=== PATIENT | female | born 1955 | race Caucasian/White ===

== ENCOUNTER 2018-12-07 12:48 | Emergency (ER) | payer OTHER ==
--- NOTE | 2018-12-07 13:22 | UC ---
Shortness of Breath HPI - HPI Summary HPI Summary: 63 y/o female with hx of COPD 3 days hx of cough , chest congestion and SOB c/o chest pressure , symptoms are severe 8 out of 10, worse with exertion , nothing makes it better, no fever, no chills on arrival her PO was 83% on room air 94 % on 2 L NC EKG : no ST elevation no neb tx / steroid was given at the urgent care - History of Current Complaint Chief Complaint: UCRespiratory Stated Complaint: ST,EARS/ST/SINUS COMPLAINT,LIGHTHEADED,DIZZY Time Seen by Provider: 12/07/18 13:04 Hx Obtained From: Patient, Family/Shipping Clerk/Admin Onset/Duration: Gradual Onset, Lasting Days - 3, Still Present Timing: Constant Current Severity: Severe Dyspnea At: Rest Aggravating Factors: Movement, Deep Breaths, Recumbent Position Alleviating Factors: Nothing Associated Signs & Symptoms: Positive: Cough (Productive), Chest Pain w/Cough, Chest Pain Unrelated to Cough, Edema. Negative: Fever, Chills, Diaphoresis, Nasal Congestion, Dizzy, Calf Pain/Swelling Related History: Obesity, Similar Episode - COPD / pneumonia - Allergy/Home Medications Allergies/Adverse Reactions: Allergies Allergy/AdvReac Type Severity Reaction Status Date / Time codeine Allergy Unknown Verified 12/07/18 12:58 Reaction Details peginterferon lynn-2b Allergy Unknown Verified 12/07/18 12:58 Reaction Details Home Medications: Home Medications Albuterol HFA INHALER* [Ventolin HFA Inhaler*] 1 - 2 puff INH Q4H PRN 12/07/18 [ History Confirmed 12/07/18] Diazepam TAB(*) [Valium TAB(*)] 5 mg PO TID PRN 12/07/18 [History Confirmed ] Mometasone/Formoter 200/5 MDI* [Dulera 200/5 MDI*] 2 puff INH BID 12/07/18 [ History Confirmed 12/07/18] PMH/Surg Hx/FS Hx/Imm Hx Respiratory History: COPD - Surgical History Surgical History: Unable to Obtain/Confirm - Family History Known Family History: Negative: Diabetes - Social History Alcohol Use: None Substance Use Type: None Smoking Status (MU): Heavy Every Day Tobacco Smoker Review of Systems All Other Systems Reviewed And Are Negative: Yes Constitutional: Positive: Negative Skin: Positive: Negative Eyes: Positive: Negative ENT: Positive: Negative Respiratory: Positive: Shortness Of Breath, Cough Cardiovascular: Positive: Chest Pain Is Patient Immunocompromised?: No Physical Exam Triage Information Reviewed: Yes Appearance: Ill-Appearing, Pain Distress - on respiratory distress Vital Signs: Initial Vital Signs Temp 97.6 F 12/07/18 12:52 Pulse 76 12/07/18 12:52 Resp 24 12/07/18 12:52 BP 164/96 12/07/18 12:52 Pulse Ox 94 12/07/18 12:52 Vital Signs Reviewed: Yes Eyes: Positive: Conjunctiva Clear ENT: Positive: Normal ENT inspection, Hearing grossly normal, Pharynx normal Neck: Positive: Supple, Nontender, No Lymphadenopathy Respiratory: Positive: Chest non-tender, Respiratory distress, Decreased breath sounds Cardiovascular: Positive: RRR Abdominal Exam: Normal Abdomen Description: Positive: Nontender, Soft Bowel Sounds: Positive: Present Diagnostics - EKG Cardiac Rate: NL Cardiac Rhythm: Sinus: Normal ST Segment: Normal Shortness of Breath Dx - Differential Dx/Diagnosis Provider Diagnosis: COPD exacerbation Discharge - Sign-Out/Discharge Documenting (check all that apply): Patient Departure All imaging exams completed and their final reports reviewed: No Studies - Discharge Plan Condition: Fair Disposition: TRANS HIGHER LVL OF CARE FAC Referrals: No Primary Care Phys,NOPCP [Primary Care Provider] - - Billing Disposition and Condition Condition: FAIR Disposition: Trans Higher Lvl of Care Fac
[2018-12-07 13:31] VITALS: BP 144/98
== END 2018-12-07 13:31 | disposition short-term general hospital (02) ==
LOC: UCCORT 12:48
DX: J44.1 Chronic obstructive pulmonary disease with (acute) exacerbation (principal); F17.210 Nicotine dependence, cigarettes, uncomplicated
CPT/HCPCS: 93005; 99213; G0463

== ENCOUNTER 2023-02-20 04:06 | Inpatient (IN) ==
[2023-02-20] MEDS ORDERED: Ondansetron 4 mg VIAL 2 MG/ML 2 ml VIAL IV ONE (04:35)
[2023-02-20] MEDS ORDERED: Ondansetron ODT 4 mg TAB 4 MG TAB SL ONE (05:02)
[2023-02-20] MEDS ORDERED: Ondansetron ODT 4 mg TAB 4 MG TAB ONE (05:03)
[2023-02-20 05:22] LABS: Hematocrit 35.6 % (35-45); Hemoglobin 11.9 g/dL (11.5-14.3); Mean Corpuscular Hemoglobin 25.6 pg (27-33); Mean Corpuscular Hgb Conc 33.5 g/dL (31-36); Mean Corpuscular Volume 76.5 fL (80-97); Mean Platelet Volume 6.6 fL (7.5-11.2); Platelet Count 472 10^3/uL (150-450); Red Blood Count 4.66 10^6/uL (3.63-4.92); Red Cell Distribution Width 17.7 % (12-17)
[2023-02-20 05:32] LABS: Albumin 3.9 g/dL (3.2-5.2); Albumin/Globulin Ratio 1.4 (1-3); Calcium 9.3 mg/dL (8.6-10.3); Creatinine, Serum 0.79 mg/dL (0.51-0.95); Globulin 2.7 g/dL (2-4); Total Bilirubin 0.5 mg/dL (0.2-1.0); Total Protein 6.6 g/dL (6.4-8.9); eGFR CKD-EPI 81.4 (>60)
[2023-02-20] MEDS ORDERED: Iohexol 300 (CONTRAST) 10 ML SDV IV ONE (05:47)
[2023-02-20 06:02] LABS: Microcytosis 1+
[2023-02-20 06:03] LABS: Anisocytosis 1+; Stomatocytes 1+
[2023-02-20 06:04] LABS: ABS Basophils 0.1 10^3/uL (0.0-0.1); ABS Lymphocytes 0.6 10^3/uL (1.0-4.8); ABS Monocytes 1.2 10^3/uL (0.0-0.9); ABS Neutrophils 13.2 10^3/uL (1.5-7.6); ABS Nucleated RBC 0.02 10^3/ul
[2023-02-20 06:05] LABS: Eosinophil % 0.1 %; Lymphocyte % 3.8 %; Nucleated Red Blood Cells % 0.1 /100 WBC (0.0-0.4)
[2023-02-20] MEDS: KCL 20 MEQ/100 ML IVPREMIX 20 MEQ/100 ML BAG IV SCH ×2 (07:22→09:58)
[2023-02-20] MEDS ORDERED: Al Hydrox/Mg Hydrox/Simet LIQ 30 ML UDC PO PRN (07:49)
[2023-02-20] MEDS ORDERED: Albuterol/Ipratropium NEB.SOL (2.5/0.5 MG) 3 ML NEB.SOLN INH PRN (08:10)
[2023-02-20 08:36] LABS: PCO2 Arterial 68 mmHg (35-45); PO2 Arterial 99 mmHg (80-100)
[2023-02-20] MEDS ORDERED: NS 0.9% 1000 ml BAG 1,000 ML IV SCH (09:00)
[2023-02-20 09:19] LABS: HDL Cholesterol 73.1 mg/dL
[2023-02-20 10:42] LABS: Urine Appearance Cloudy; Urine Bilirubin Negative (Negative); Urine Blood Negative (Negative); Urine Color Yellow; Urine Glucose Negative (Negative); Urine Ketones Negative (Negative); Urine Nitrite Negative (Negative); Urine Protein Negative (Negative); Urine Specific Gravity 1.034 (1.002-1.030); Urine Urobilinogen Negative (Negative)
[2023-02-20 11:01] LABS: Blood Urea Nitrogen 31 mg/dL (6-24); Calcium 9.3 mg/dL (8.6-10.3); Chloride 66 mmol/L (101-111); Creatinine, Serum 0.74 mg/dL (0.51-0.95); Glucose 163 mg/dL (70-100); Potassium 3.7 mmol/L (3.5-5.0); Sodium 121 mmol/L (135-145); eGFR CKD-EPI 88.1 (>60)
[2023-02-20] MEDS: Mometasone/Formoter 200/5 MDI INH SCH ×2 (11:08→21:56)
[2023-02-20 11:19] LABS: CO2 Carbon Dioxide > 45 mmol/L (22-32)
[2023-02-20 11:23] LABS: Urine Bacteria Absent (Absent); Urine Red Blood Cell Trace(0-2/hpf) (Absent); Urine White Blood Cell 2+(11-20/hpf) (Absent)
[2023-02-20 12:49] LABS: Osmolality Serum 266 mOsm/kg (275-295)
[2023-02-20 17:47] LABS: Blood Urea Nitrogen 28 mg/dL (6-24); Calcium 9.4 mg/dL (8.6-10.3); Chloride 69 mmol/L (101-111); Creatinine, Serum 0.69 mg/dL (0.51-0.95); Glucose 190 mg/dL (70-100); Potassium 3.8 mmol/L (3.5-5.0); Sodium 122 mmol/L (135-145); eGFR CKD-EPI 94.5 (>60)
[2023-02-20] MEDS: Ondansetron 4 mg VIAL 2 MG/ML 2 ml VIAL IV PRN (18:07)
[2023-02-20 18:23] LABS: CO2 Carbon Dioxide > 45 mmol/L (22-32)
[2023-02-20] MEDS: NS 0.9% 1000 ml BAG 1,000 ML IV SCH (21:55)
[2023-02-21] MEDS: NS 0.9% 1000 ml BAG 1,000 ML IV SCH ×3 (05:01→20:26)
[2023-02-21] MEDS: Mometasone/Formoter 200/5 MDI INH SCH ×3 (07:19→20:03)
[2023-02-21] MEDS ORDERED: Enoxaparin 40 MG/0.4 ML SYR SUBCUT SCH (08:00)
[2023-02-21 10:02] LABS: ABS Basophils 0.1 10^3/uL (0.0-0.1); ABS Lymphocytes 0.6 10^3/uL (1.0-4.8); ABS Monocytes 0.9 10^3/uL (0.0-0.9); ABS Neutrophils 8.3 10^3/uL (1.5-7.6); ABS Nucleated RBC 0.01 10^3/ul; Calcium 8.7 mg/dL (8.6-10.3); Creatinine, Serum 0.6 mg/dL (0.51-0.95); Eosinophil % 0.4 %; Hematocrit 32.7 % (35-45); Hemoglobin 10.9 g/dL (11.5-14.3); Lymphocyte % 6.1 %; Magnesium 1.8 mg/dL (1.9-2.7); Mean Corpuscular Hemoglobin 25.8 pg (27-33); Mean Corpuscular Hgb Conc 33.2 g/dL (31-36); Mean Corpuscular Volume 77.9 fL (80-97); Mean Platelet Volume 6.7 fL (7.5-11.2); Nucleated Red Blood Cells % 0.1 /100 WBC (0.0-0.4); Platelet Count 346 10^3/uL (150-450); Potassium 3.6 mmol/L (3.5-5.0); Red Cell Distribution Width 17.9 % (12-17); eGFR CKD-EPI 97.7 (>60)
[2023-02-21 13:53] LABS: Calcium 8.7 mg/dL (8.6-10.3); Creatinine, Serum 0.65 mg/dL (0.51-0.95); Potassium 3.6 mmol/L (3.5-5.0); eGFR CKD-EPI 95.8 (>60)
[2023-02-21] MEDS ORDERED: NS 0.9% 1000 ml BAG 1,000 ML IV SCH (14:30)
[2023-02-22] MEDS: Ondansetron 4 mg VIAL 2 MG/ML 2 ml VIAL IV PRN (00:29)
[2023-02-22] MEDS: NS 0.9% 1000 ml BAG 1,000 ML IV SCH ×3 (02:45→23:05)
[2023-02-22] MEDS: Albuterol/Ipratropium NEB.SOL (2.5/0.5 MG) 3 ML NEB.SOLN INH SCH ×2 (07:29→13:59)
[2023-02-22] MEDS: Mometasone/Formoter 200/5 MDI INH SCH ×2 (07:29→19:11)
[2023-02-22 12:24] LABS: Calcium 8.2 mg/dL (8.6-10.3); Creatinine, Serum 0.54 mg/dL (0.51-0.95); Potassium 3.7 mmol/L (3.5-5.0); eGFR CKD-EPI 100.2 (>60)
[2023-02-22] MEDS: Albuterol/Ipratropium NEB.SOL (2.5/0.5 MG) 3 ML NEB.SOLN INH PRN (19:11)
[2023-02-23] MEDS: NS 0.9% 1000 ml BAG 1,000 ML IV SCH (05:34)
[2023-02-23] MEDS: Mometasone/Formoter 200/5 MDI INH SCH ×2 (08:58→19:26)
[2023-02-23] MEDS ORDERED: Furosemide 40 mg/4 ml IV VIAL IV SLOW PU ONE (10:08)
[2023-02-23] MEDS: Albuterol/Ipratropium NEB.SOL (2.5/0.5 MG) 3 ML NEB.SOLN INH PRN (10:16)
[2023-02-23] MEDS: Albuterol/Ipratropium NEB.SOL (2.5/0.5 MG) 3 ML NEB.SOLN INH SCH ×2 (14:01→19:26)
[2023-02-23] MEDS: cefTRIAXone 1 gm/50 mL D5W 1 GM/50 ML BAG IV SCH (14:44)
[2023-02-24] MEDS: Albuterol/Ipratropium NEB.SOL (2.5/0.5 MG) 3 ML NEB.SOLN INH SCH ×3 (08:13→20:10)
[2023-02-24 08:22] LABS: Calcium 8.6 mg/dL (8.6-10.3); Creatinine, Serum 0.57 mg/dL (0.51-0.95); eGFR CKD-EPI 98.9 (>60)
[2023-02-24] MEDS: Mometasone/Formoter 200/5 MDI INH SCH ×2 (08:22→20:11)
[2023-02-24] MEDS: cefTRIAXone 1 gm/50 mL D5W 1 GM/50 ML BAG IV SCH (15:11)
[2023-02-24] MEDS ORDERED: Furosemide 40 mg/4 ml IV VIAL IV SLOW PU ONE (15:56)
[2023-02-24] MEDS: methylPREDNISolone SOD SUCC 40 mg/ml 1 ml VIAL IV SCH (16:19)
[2023-02-25] MEDS: methylPREDNISolone SOD SUCC 40 mg/ml 1 ml VIAL IV SCH ×2 (05:31→18:33)
[2023-02-25] MEDS: Albuterol/Ipratropium NEB.SOL (2.5/0.5 MG) 3 ML NEB.SOLN INH SCH ×3 (07:29→19:54)
[2023-02-25] MEDS: Mometasone/Formoter 200/5 MDI INH SCH ×2 (07:30→19:54)
[2023-02-25] MEDS: cefTRIAXone 1 gm/50 mL D5W 1 GM/50 ML BAG IV SCH (14:42)
[2023-02-26] MEDS: methylPREDNISolone SOD SUCC 40 mg/ml 1 ml VIAL IV SCH ×2 (06:29→17:47)
[2023-02-26 08:13] LABS: Hematocrit 33.4 % (35-45); Hemoglobin 11.1 g/dL (11.5-14.3); Mean Corpuscular Hemoglobin 25.9 pg (27-33); Mean Corpuscular Hgb Conc 33.2 g/dL (31-36); Mean Platelet Volume 6.7 fL (7.5-11.2); Platelet Count 338 10^3/uL (150-450); Red Blood Count 4.28 10^6/uL (3.63-4.92); Red Cell Distribution Width 17.6 % (12-17); White Blood Count 14.5 10^3/uL (3.8-11.8)
[2023-02-26] MEDS: Mometasone/Formoter 200/5 MDI INH SCH ×2 (08:22→19:28)
[2023-02-26] MEDS: Albuterol/Ipratropium NEB.SOL (2.5/0.5 MG) 3 ML NEB.SOLN INH SCH ×2 (08:23→13:47)
[2023-02-26 08:44] LABS: Creatinine, Serum 0.6 mg/dL (0.51-0.95); Potassium 4.5 mmol/L (3.5-5.0); eGFR CKD-EPI 97.7 (>60)
[2023-02-26] MEDS ORDERED: Albuterol HFA INHALER 8 gm MDI INH PRN (13:29)
[2023-02-26] MEDS: Albuterol HFA INHALER 8 gm MDI INH SCH (19:29)
[2023-02-26] MEDS: Albuterol/Ipratropium NEB.SOL (2.5/0.5 MG) 3 ML NEB.SOLN INH PRN (21:27)
[2023-02-27] MEDS: methylPREDNISolone SOD SUCC 40 mg/ml 1 ml VIAL IV SCH (06:39)
[2023-02-27] MEDS: Mometasone/Formoter 200/5 MDI INH SCH ×2 (07:41→19:25)
[2023-02-27] MEDS: Albuterol HFA INHALER 8 gm MDI INH SCH ×3 (07:41→19:26)
[2023-02-27 13:33] LABS: Urine Osmo 284 mOsm/kg (150-1150)
[2023-02-27] MEDS: Albuterol/Ipratropium NEB.SOL (2.5/0.5 MG) 3 ML NEB.SOLN INH PRN (19:25)
[2023-02-28] MEDS: Mometasone/Formoter 200/5 MDI INH SCH ×2 (08:26→19:37)
[2023-02-28] MEDS: Albuterol HFA INHALER 8 gm MDI INH SCH ×3 (08:26→21:40)
[2023-02-28] MEDS: Albuterol/Ipratropium NEB.SOL (2.5/0.5 MG) 3 ML NEB.SOLN INH PRN (10:34)
[2023-03-01] MEDS: Mometasone/Formoter 200/5 MDI INH SCH (07:21)
[2023-03-01] MEDS: Albuterol HFA INHALER 8 gm MDI INH SCH ×2 (07:21→13:50)
[2023-03-01] MEDS: Albuterol/Ipratropium NEB.SOL (2.5/0.5 MG) 3 ML NEB.SOLN INH PRN ×2 (07:21→13:50)
[2023-03-01 14:09] VITALS: BP 127/74
== END 2023-03-01 15:42 | DRG 641 ==
LOC: ED 04:06 → EDHOLD 07:49 → SUATTDRO 07:49 → MED 07:49
PROVIDERS: ADMIT Internal Medicine; ATTEND Internal Medicine